=== PATIENT | female | born 1990 | race Caucasian/White ===

== ENCOUNTER 2023-10-23 19:30 | Inpatient (IN) | payer MEDICAID, SELFPAY ==
[2023-10-23 19:20] VITALS: BP 125/90; PULSE 102; RESP 18; TEMP 37.3; O2SAT 96
[2023-10-23 19:46] VITALS: BMI 20.5
[2023-10-23] MEDS: ibuprofen 600 mg Tablet PO (20:44)
[2023-10-23] MEDS: OLANZapine 5 mg ODT PO (20:44)
[2023-10-23] MEDS: haloperidol 5 mg Tablet PO (21:22)
[2023-10-23] MEDS: trazodone 50 mg Tablet PO (21:22)
[2023-10-23] MEDS: hyDROXYzine 25 mg Capsule 50 MG PO (21:22)
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
[2023-10-24 06:00] VITALS: BP 121/84; PULSE 66; RESP 17; TEMP 36.7; O2SAT 100
--- NOTE | 2023-10-24 09:04 | P.NPUHP_ITS ---
Providers/Chief Complaint Admitting Physician: Celestine Bird MD Chief Complaint: SI HPI NPU History of Present Illness Humaira Colin is a 33 year old female who presented to the outside hospital reporting suicidal thoughts endorsing a admission to Psychiatric facility a few months prior for suicidal thoughts due to relationship problems she endorsed having a similar situation when she presented there reporting self-injurious behavior for the 3 hours prior to presenting to the emergency department, that she stopped taking her antidepressants and that she possibly had a seizure leading her to think she should stop taking the medications in general. She was transferred to [facility] and admitted to the neuropsychiatric unit for definitive treatment of those issues. CHIEF COMPLAINT Suicidal thoughts, feeling unwell HISTORY OF THE PRESENT COMPLAINT The patient reported being on Gavibutin for anxiety and Rozerem for sleep. She mentioned that she had been on Neurontin but stopped taking it due to a seizure she experienced last week. The patient has been hospitalized approximately 12 times, with the first time being around the age of 22. She reported an increase in hospitalizations after the of her baby, suggesting depression or related issues. The patient has been on various medications throughout her life, including Abilify and Wellbutrin. She reported an incident where she took too many Wellbutrin in an attempt to harm herself about a week ago. She also mentioned struggles with alcohol and cannabis use, and a past struggle with opiates from 2015 to 2017. She has been to rehab once. The patient reported a history of depression, anxiety, panic disorder, bipolar disorder, and borderline personality disorder. She has attempted suicide multiple times and has a history of self-harming behavior. She also reported experiencing flashbacks and nightmares related to past traumas and has been diagnosed with PTSD. The patient has a [id number] child who is currently with the father due to her issues with alcohol. She reported volatile relationships and struggles with emotional volatility and abandonment. She has been living with her current boyfriend for about a year, but the relationship is unstable. The patient reported having a bachelor's degree in psychology and has held a job for three years. She has been diagnosed with lupus after the of her baby but it has been resolved. She has also had jaw surgery. The patient reported feeling calm but lost during the consultation. She is currently taking Neurontin and is open to restarting Strattera. She has also agreed to restart Cymbalta. MENTAL HEALTH HISTORY Anxiety, sleep disorder, seizure due to Neurontin, depression, anxiety, panic disorder, bipolar disorder, borderline personality disorder, PTSD, history of self-harm and suicide attempts, history of cutting, history of hospitalizations (approx. 12 times), history of medication use (Gavibutin, Rozerem, Neurontin, Abilify, Wellbutrin, Strattera, Cymbalta) SOCIAL HISTORY Tobacco use, history of alcohol abuse and abstinence, history of cannabis use, history of opiate use ([id number]), history of domestic assault charge, adopted, has a biological brother, has a child (1.5 years old) with DFS involvement due t o drinking, history of volatile relationships, history of employment (3 years), lives with boyfriend Meds NPU Home Medications Medication Instructions Recorded Confirmed Last Taken Type gabapentin 400 mg capsule 400 mg PO QID 10/24/23 10/24/23 10/21/23 History Allergies Allergy/AdvReac Type Severity Reaction Status Date / Time No Known Allergies Allergy Verified 10/23/23 20:00 Mental Status Exam MSE Comments: This is a slender white female in hospital scrubs with limited grooming and eye contact. No abnormal movements except for mild psychomotor retardation. Cooperative with exam in mild distress. Speech was slightly decreased rate and volume. Mood described as depressed and anxious, affect congruent. Thought process organized. Thought content: Patient denied active suicidal or homicidal ideation, there were no delusions reported noted, she denied any auditory or visual hallucinations. Attention and concentration were intact and memory appeared mostly reliable but none were formally tested. She is alert and oriented x 3. Insight and judgment are fair impulse control is limited versus impaired. Vitals/I&O/Wt Last Vital Signs Temp 98.1 F 10/24/23 06:00 Pulse 66 10/24/23 06:00 Resp 17 10/24/23 06:00 BP 121/84 10/24/23 06:00 Pulse Ox 100 10/24/23 06:00 O2 Del Method Room Air 10/24/23 06:00 Weight last 48 hrs Weight 61.235 kg A&P Assessment and plan (1) Borderline personality disorder: (2) Depression: (3) Partner relational problem: (4) PTSD (post-traumatic stress disorder): Plan Patient is a 33-year-old white female with a complex mental health history with multiple hospitalizations and medication use. She has a history of substance abuse and volatile relationships. She has a history of self-harm and suicide attempts and reported an openness to restarting medications 1. Therapeutic observation 15-minute checks while on the unit. 2. Engage patient in individual milieu and group therapy 3. Encourage sober living treatment at the highest level of care to which the patient is willing to commit. 4. Restarted Cymbalta at 20 mg po bid, continue neurontin and strattera. Involuntary Hold Information 96 Hour Hold: 96 Hour Involuntary Admission: No Attestations NPU Medical Necessity Statement*: Inpatient hospitalization is medically necessary and the clinically appropriate intervention at this time. We will monitor medication to make changes as indicated. Patient will be in the hospital for over two midnights. Likely length of stay 3 to 5 days. Coding Level of Care Code Acute Code for [facility] Fwd Diagnoses Borderline personality disorder F60.3 Depression F32.A Partner relational problem Z63.0 PTSD (post-traumatic stress disorder) F43.10
[2023-10-24] MEDS: nicotine 4 mg lozenge MUCOUS MEM ×3 (13:17→20:25)
[2023-10-24 14:00] VITALS: BP 108/76; PULSE 84; RESP 20; TEMP 36.9; O2SAT 90
[2023-10-24] MEDS: OLANZapine 5 mg ODT PO (15:24)
[2023-10-24] MEDS: gabapentin 400 mg Capsule PO ×2 (17:21→20:25)
[2023-10-24] MEDS: hyDROXYzine 25 mg Capsule 50 MG PO (20:25)
[2023-10-24] MEDS: trazodone 50 mg Tablet PO (20:25)
[2023-10-24 21:41] VITALS: BP 118/35; PULSE 102; RESP 20; TEMP 37.6; O2SAT 98
[2023-10-25] MEDS: OLANZapine 5 mg ODT PO ×2 (00:52→20:07)
[2023-10-25 06:00] VITALS: BP 113/78; PULSE 96; RESP 16; TEMP 37; O2SAT 98
[2023-10-25] MEDS: gabapentin 400 mg Capsule PO ×4 (08:31→20:07)
[2023-10-25] MEDS: duloxetine 20 mg Capsule PO ×2 (08:31→17:39)
[2023-10-25] MEDS: atomoxetine 40 mg Capsule PO (08:31)
[2023-10-25] MEDS: nicotine 4 mg lozenge MUCOUS MEM ×3 (08:37→19:11)
[2023-10-25 14:00] VITALS: BP 116/77; PULSE 102; RESP 20; TEMP 36.6; O2SAT 97
--- NOTE | 2023-10-25 19:06 | P.NPUPN_ITS ---
Subjective NPU Subjective: Patient today reporting her relationship might be over. She reports she is adjusting to the medication. She reports being hopeful that she does not have to stay the whole weekend. She denied any side effects to the medication. Mental Status Exam MSE Comments: This is a slender white female in hospital scrubs with limited grooming and eye contact. No abnormal movements except for mild psychomotor retardation. Cooperative with exam in mild distress. Speech was slightly decreased rate and volume. Mood described as depressed and anxious, affect congruent. Thought process organized. Thought content: Patient denied active suicidal or homicidal ideation, there were no delusions reported noted, she denied any auditory or visual hallucinations. Attention and concentration were intact and memory appeared mostly reliable but none were formally tested. She is alert and oriented x 3. Insight and judgment are fair impulse control is limited versus impaired. Vitals/I&O/Wt Last Vital Signs Temp 98.7 F 10/25/23 21:15 Pulse 100 10/25/23 21:15 Resp 18 10/25/23 21:15 BP 119/83 10/25/23 21:15 Pulse Ox 99 10/25/23 21:15 O2 Del Method Room Air 10/25/23 14:00 A&P Assessment and plan (1) Borderline personality disorder: (2) Depression: (3) Partner relational problem: (4) PTSD (post-traumatic stress disorder): Plan Patient is a 33-year-old white female with a complex mental health history with multiple hospitalizations and medication use. She has a history of substance abuse and volatile relationships. She has a history of self-harm and suicide attempts and reported an openness to restarting medications 1. Therapeutic observation 15-minute checks while on the unit. 2. Engage patient in individual milieu and group therapy 3. Encourage sober living treatment at the highest level of care to which the patient is willing to commit. 4. Restarted Cymbalta at 20 mg po bid, continue neurontin and strattera. Involuntary Hold Information 96 Hour Hold: 96 Hour Involuntary Admission: No Attestations NPU Medical Necessity Statement*: Inpatient hospitalization is medically necessary and the clinically appropriate intervention at this time. We will monitor medication to make changes as indicated. Likely length of stay 2-4 days. Coding Level of Care Code Acute Code for [facility] Diagnoses Borderline personality disorder F60.3 Depression F32.A Partner relational problem Z63.0 PTSD (post-traumatic stress disorder) F43.10
[2023-10-25] MEDS: trazodone 50 mg Tablet PO (20:07)
[2023-10-25 21:15] VITALS: BP 119/83; PULSE 100; RESP 18; TEMP 37.1; O2SAT 99
[2023-10-26] MEDS: nicotine 4 mg lozenge MUCOUS MEM ×5 (04:47→19:37)
[2023-10-26 06:00] VITALS: BP 125/82; PULSE 99; RESP 18; TEMP 36.9; O2SAT 99
--- NOTE | 2023-10-26 06:34 | P.NPUPN_ITS ---
Subjective NPU Subjective: Patient presented today reporting that she is feeling better with the medication. She reports a desire to go home if possible. She reports she lives 2 hours away and will likely need assistance in getting there. She reports she feels she accomplished which she needed to do here and the rest of her past involves going back to her apartment and talking things out with her significant other either way. We discussed Dr. Goel returning tomorrow but the likelihood of discharge in the next 48 hours. She denied any side effects of medication. Mental Status Exam MSE Comments: This is a slender white female in hospital scrubs with limited grooming and eye contact. No abnormal movements except for mild psychomotor retardation. Cooperative with exam in mild distress. Speech was slightly decreased rate and volume. Mood described as feeling better, affect congruent. Thought process organized. Thought content: Patient denied active suicidal or homicidal ideation, there were no delusions reported noted, she denied any auditory or visual hallucinations. Attention and concentration were intact and memory appeared mostly reliable but none were formally tested. She is alert and o riented x 3. Insight and judgment are fair impulse control is limited. Vitals/I&O/Wt Last Vital Signs Temp 98.4 F 10/26/23 06:00 Pulse 99 10/26/23 06:00 Resp 18 10/26/23 06:00 BP 125/82 10/26/23 06:00 Pulse Ox 99 10/26/23 06:00 O2 Del Method Room Air 10/25/23 14:00 A&P Assessment and plan (1) Borderline personality disorder: (2) Depression: (3) Partner relational problem: (4) PTSD (post-traumatic stress disorder): Plan Patient is a 33-year-old white female with a complex mental health history with multiple hospitalizations and medication use. She has a history of substance abuse and volatile relationships. She has a history of self-harm and suicide attempts and reported an openness to restarting medications 1. Therapeutic observation 15-minute checks while on the unit. 2. Engage patient in individual milieu and group therapy 3. Encourage sober living treatment at the highest level of care to which the patient is willing to commit. 4. Restarted Cymbalta at 20 mg po bid, continue neurontin and strattera. Involuntary Hold Information 96 Hour Hold: 96 Hour Involuntary Admission: No Attestations NPU Medical Necessity Statement*: Inpatient hospitalization is medically necessary and the clinically appropriate intervention at this time. We will monitor medication to make changes as indicated. Likely length of stay 1-3 days. Coding Level of Care Code Acute Code for g Fwd Diagnoses Borderline personality disorder F60.3 Depression F32.A Partner relational problem Z63.0 PTSD (post-traumatic stress disorder) F43.10
[2023-10-26] MEDS: duloxetine 20 mg Capsule PO ×2 (07:48→17:09)
[2023-10-26] MEDS: gabapentin 400 mg Capsule PO ×4 (07:49→20:15)
[2023-10-26] MEDS: atomoxetine 40 mg Capsule PO (07:49)
[2023-10-26] MEDS: nicotine 2 mg Gum BUCCAL (11:34)
[2023-10-26 14:00] VITALS: RESP 16
[2023-10-26] MEDS: OLANZapine 5 mg ODT PO (15:59)
[2023-10-26 19:41] VITALS: BP 120/77; PULSE 90; RESP 16; TEMP 36.9; O2SAT 100
[2023-10-26] MEDS: trazodone 50 mg Tablet PO (20:15)
[2023-10-27] MEDS: nicotine 2 mg Gum BUCCAL (04:54)
[2023-10-27] MEDS: OLANZapine 5 mg ODT PO (05:12)
[2023-10-27 06:00] VITALS: BP 121/79; PULSE 91; RESP 16; TEMP 36.9; O2SAT 97
[2023-10-27] MEDS: nicotine 4 mg lozenge MUCOUS MEM ×6 (07:43→21:16)
[2023-10-27] MEDS: gabapentin 400 mg Capsule PO ×4 (07:43→19:55)
[2023-10-27] MEDS: duloxetine 20 mg Capsule PO ×2 (07:43→17:07)
[2023-10-27] MEDS: atomoxetine 40 mg Capsule PO (07:43)
[2023-10-27] MEDS: ibuprofen 600 mg Tablet PO (12:24)
[2023-10-27 14:00] VITALS: BP 119/84; PULSE 127; RESP 13; TEMP 36.8; O2SAT 99
[2023-10-27] MEDS: hyDROXYzine 25 mg Capsule 50 MG PO (16:02)
--- NOTE | 2023-10-27 16:57 | P.NPUPN_ITS ---
Subjective NPU Subjective: 33-year-old female admitted after overdo sing on Wellbutrin with a history of borderline personality disorder and depression. Patient had reported a past history of ADHD as well. She had reported no side effects from her current medication. She had reported a past history of self-injurious behavior. Patient had reported previous trials on stimulants for treating her ADHD symptoms but reported she did not wish to get started back on stimulants again despite no history of stimulant abuse. She reported no feelings of hopelessness. She had reported that her concentration remained poor. She had reported being easily distracted. She had endorsed some PTSD related symptoms and stated that she would like to consider getting therapy. Mental Status Exam MSE Comments: This is a slender white female in hospital scrubs with limited grooming and eye contact. No abnormal movements other than mild psychomotor retardation. She was cooperative with exam in no acute distress. Speech was slightly decreased in rate, normal in volume. Mood described better. Affect was mood congruent and restricted. Thought process was linear and organized. Thought content: Patient denied active suicidal or homicidal ideation, there were no delusions reported noted, she denied any auditory or visual hallucinations. Attention and concentration were intact and memory appeared mostly reliable but none were formally tested. She is alert and oriented x 3. Insight is limited and judgment is fair . Impulse control is limited. Vitals/I&O/Wt Last Vital Signs Temp 98.2 F 10/27/23 14:00 Pulse 127 H 10/27/23 14:00 Resp 13 10/27/23 14:00 BP 119/84 10/27/23 14:00 Pulse Ox 99 10/27/23 14:00 O2 Del Method Room Air 10/27/23 06:00 Weight last 48 hrs Weight 61.87 kg A&P Assessment and plan (1) Borderline personality disorder: (2) Depression: (3) Partner relational problem: (4) PTSD (post-traumatic stress disorder): Plan Patient is a 33-year-old white female with a complex mental health history with multiple hospitalizations and medication use. She has a history of substance abuse and volatile relationships. She has a history of self-harm and suicide attempts and reported an openness to restarting medications 1. Therapeutic observation 15-minute checks while on the unit. 2. Engage patient in individual milieu and group therapy 3. Encourage sober living treatment at the highest level of care to which the patient is willing to commit. 4. Continue Cymbalta 40mg daily and Strattera as prescribed. Involuntary Hold Information 96 Hour Hold: 96 Hour Involuntary Admission: No Attestations NPU Medical Necessity Statement*: Inpatient hospitalization is medically necessary and the clinically appropriate intervention at this time. We will monitor medication to make changes as indicated. The patient's likely length of stay is 1-3 days. Coding Level of Care Code Acute Code for [facility] Fwd Diagnoses Borderline personality disorder F60.3 Depression F32.A Partner relational problem Z63.0 PTSD (post-traumatic stress disorder) F43.10
[2023-10-27] MEDS: cetirizine 10 mg Tablet PO (19:55)
[2023-10-27 20:02] VITALS: BP 130/88; PULSE 82; RESP 18; TEMP 36.8; O2SAT 100
[2023-10-28] MEDS: hyDROXYzine 25 mg Capsule 50 MG PO ×3 (00:42→16:08)
[2023-10-28] MEDS: OLANZapine 5 mg ODT PO ×2 (02:56→12:26)
[2023-10-28 05:56] VITALS: BP 122/84; PULSE 67; RESP 18; TEMP 36.9; O2SAT 100
[2023-10-28] MEDS: nicotine 4 mg lozenge MUCOUS MEM ×5 (06:01→14:59)
[2023-10-28] MEDS: atomoxetine 40 mg Capsule PO (08:09)
[2023-10-28] MEDS: cetirizine 10 mg Tablet PO (08:09)
[2023-10-28] MEDS: gabapentin 400 mg Capsule PO ×3 (08:09→16:09)
[2023-10-28] MEDS: duloxetine 20 mg Capsule PO (08:09)
--- NOTE | 2023-10-28 12:13 | W.PM.NPUDCS ---
Diagnoses at Discharge Discharge Diagnosis (1) Borderline personality disorder: Status: Acute (2) Depression: Status: Acute (3) Partner relational problem: Status: Acute (4) PTSD (post-traumatic stress disorder): Status: Acute Reason for Visit Reason for Visit: SI Brief History: History of Present Illness Humaira Colin is a 33 year old female who presented to the outside hospital reporting suicidal thoughts endorsing a admission to Psychiatric facility a few months prior for suicidal thoughts due to relationship problems she endorsed having a similar situation when she presented there reporting self-injurious behavior for the 3 hours prior to presenting to the emergency department, that she stopped taking her antidepressants and that she possibly had a seizure leading her to think she should stop taking the medications in general. She was transferred to [facility] and admitted to the neuropsychiatric unit for definitive treatment of those issues. CHIEF COMPLAINT Suicidal thoughts, feeling unwell HISTORY OF THE PRESENT COMPLAINT The patient reported being on Gavibutin for anxiety and Rozerem for sleep. She mentioned that she had been on Neurontin but stopped taking it due to a seizure she experienced last week. The patient has been hospitalized approximately 12 times, with the first time being around the age of 22. She reported an increase in hospitalizations after the of her baby, suggesting depression or related issues. The patient has been on various medications throughout her life, including Abilify and Wellbutrin. She reported an incident where she took too many Wellbutrin in an attempt to harm herself about a week ago. She also mentioned struggles with alcohol and cannabis use, and a past struggle with opiates from 2016 to 2017. She has been to rehab once. The patient reported a history of depression, anxiety, panic disorder, bipolar disorder, and borderline personality disorder. She has attempted suicide multiple times and has a history of self-harming behavior. She also reported experiencing flashbacks and nightmares related to past traumas and has been diagnosed with PTSD. The patient has a [id number]-[id number]-[id number]-ovs child who is currently with the father due to her issues with alcohol. She reported volatile relationships and struggles with emotional volatility and abandonment. She has been living with her current boyfriend for about a year, but the relationship is unstable. The patient reported having a bachelor's degree in psychology and has held a job for three years. She has been diagnosed with lupus after the of her baby but it has been resolved. She has also had jaw surgery. The patient reported feeling calm but lost during the consultation. She is currently taking Neurontin and is open to restarting Strattera. She has also agreed to restart Cymbalta. MENTAL HEALTH HISTORY Anxiety, sleep disorder, seizure due to Neurontin, depression, anxiety, panic disorder, bipolar disorder, borderline personality disorder, PTSD, history of self-harm and suicide attempts, history of cutting, history of hospitalizations (approx. 12 times), history of medication use (Gavibutin, Rozerem, Neurontin, Abilify, Wellbutrin, Strattera, Cymbalta) SOCIAL HISTORY Tobacco use, history of alcohol abuse and abstinence, history of cannabis use, history of opiate use ([id number]), history of domestic assault charge, adopted, has a biological brother, has a child (1.5 years old) with DFS involvement due to drinking, history of volatile relationships, history of employment (3 years), lives with boyfriend Hospital Course Hospital Course During the hospitalization, the patient had routine laboratory studies which were within normal limits except for a few outliers.? Additionally, there was a general medical evaluation which was also within normal limits and revealed no new acute processes.? At the time of discharge, lethality was denied and psychosis was resolving.? Mood and anxiety were well managed.? The patient endorsed a plan to avoid all drugs of abuse and follow up with the aftercare recommendations of the treatment team.? The patient was evaluated and deemed to be absent credible lethality and had achieved the maximum benefit from an inpatient hospitalization, and so was discharged.? Cymbalta was started to target depression and Strattera was titrated up to a dose of 60 mg daily prior to discharge. Involuntary Hold Information 96 Hour Hold: 96 Hour Involuntary Admission: No Mental Status Exam MSE Comments: This is a slender white female in hospital scrubs with limited grooming and eye contact. No abnormal movements other than mild psychomotor retardation. She was cooperative with exam in no acute distress. Speech was slightly decreased in rate, normal in volume. Mood described better. Affect was mood congruent and brighter. Thought process was linear and organized. Thought content: Patient denied active suicidal or homicidal ideation, there were no delusions reported noted, she denied any auditory or visual hallucinations. Attention and concentration were intact and memory appeared mostly reliable but none were formally tested. She is alert and oriented x 3. Insight is limited and judgment is improved . Impulse control is limited. Discharge Data Vitals: Last Vital Signs Temp 98.4 F 10/28/23 05:56 Pulse 67 10/28/23 05:56 Resp 18 10/28/23 05:56 BP 122/84 10/28/23 05:56 Pulse Ox 100 10/28/23 05:56 O2 Del Method Room Air 10/27/23 20:02 Discharge Plan Discharge Patient Disposition: Home Condition: Stable Prescriptions: New duloxetine 30 mg capsule,delayed release(DR/EC) 30 mg PO DAILY 30 Days Qty: 30 1RF atomoxetine 60 mg capsule 60 mg PO DAILY 30 Days Qty: 30 1RF Rx Instructions: Take with food. cetirizine 10 mg Tablet 10 mg PO DAILY 30 Days Qty: 30 1RF Continued gabapentin 400 mg Capsule 400 mg PO QID 30 Days Qty: 120 1RF Discharge Orders: Discharge Order (Routine); Ordered 10/28/23 Ordered By: Sathish Goel Referrals: [facility] [Other] - 11/11/23 9:30 am (Initial assessment for services with Jessica Borjas) [facility] [Other] - 11/28/23 10:00 am (Psychiatric appointment with Dr Nichole) [facility] [Other] (Referred.) Discharge Diet: Usual diet Discharge Activity: Resume usual activity Patient Instructions: Depression, Atomoxetine (By mouth) (Strattera), Duloxetine (By mouth) (Cymbalta, Irenka, izalma Zaid), PTSD (Post Traumatic Stress Disorder) (DC), Help Prevent Suicide (DC), Opioid Safety Discharge Attestations NPU Time Spent in Discharge Care*: less than 30 min Specific Discharge Activities: Specific discharge activities: educating patient and documenting/other paperwork Coding Level of Care Code Acute Code for [facility] Fwd Diagnoses Borderline personality disorder F60.3 Depression F32.A Partner relational problem Z63.0 PTSD (post-traumatic stress disorder) F43.10
[2023-10-28 12:36] VITALS: BP 122/84; PULSE 67; RESP 18; TEMP 36.9; O2SAT 100
[2023-10-28 14:00] VITALS: BP 126/92; PULSE 85; RESP 18; TEMP 37.3; O2SAT 99
== END 2023-10-28 16:30 | disposition home or self-care (01) | DRG 881 ==
PROVIDERS: Admitting Provider Psychiatry & Neurology Psychiatry; Visit Provider Psychiatry & Neurology Psychiatry
DX: F32.A Depression, unspecified (principal); R45.851 Suicidal ideations; F60.3 Borderline personality disorder; F43.10 Post-traumatic stress disorder, unspecified; Z63.0 Problems in relationship with spouse or partner; Z91.51 Personal history of suicidal behavior; G47.9 Sleep disorder, unspecified; Z72.0 Tobacco use; F10.21 Alcohol dependence, in remission; F12.11 Cannabis abuse, in remission; F11.11 Opioid abuse, in remission
CPT/HCPCS: 97150; 97165